=== PATIENT | female | born 1985 | race Caucasian/White ===

== ENCOUNTER 2017-09-11 11:36 | Emergency (ER) | payer MEDICAID ==
[2017-09-11 11:45] VITALS: BP 132/78
--- NOTE | 2017-09-11 11:55 | ER Document Report ---
HPI - HPI Patient complains to provider of: right neck pain Onset: Yesterday Onset/Duration: Gradual Pain Level: 5 Context: 31-year-old female woke up with right neck pain and periscapular pain worse when she moves her head. No radiculopathy. No fever. No injury. She was recently diagnosed with fibromyalgia. Associated Symptoms: None Exacerbated by: Movement Relieved by: Denies - ROS ROS below otherwise negative: Yes Systems Reviewed and Negative: Yes All other systems reviewed and negative - REPRODUCTIVE Reproductive: DENIES: : Past Medical History - General Information source: Patient - Social History Smoking Status: Current Every Day Smoker Frequency of alcohol use: None Drug Abuse: None Lives with: Family Family History: Reviewed & Not Pertinent Musculoskeltal Medical History: Reports Hx Musculoskeletal Deformity, Reports Hx Musculoskeletal Trauma Psychiatric Medical History: Reports: Hx Anxiety, Hx Depression Surgical Hx: Negative - Immunizations Immunizations up to date: Yes Hx Diphtheria, Pertussis, Tetanus Vaccination: Yes Vertical Provider Document - CONSTITUTIONAL Agree With Documented VS: Yes Exam Limitations: No Limitations - INFECTION CONTROL TRAVEL OUTSIDE OF THE [place] IN LAST 30 DAYS: No - HEENT HEENT: Normocephalic Notes: . - NECK Notes: Tense and tender right trapezius muscle and periscapular muscles. Nontender C- spine - RESPIRATORY Respiratory: Breath Sounds Normal, No Respiratory Distress O2 Sat by Pulse Oximetry: 99 - CARDIOVASCULAR Cardiovascular: Regular Rate, Regular Rhythm - MUSCULOSKELETAL/EXTREMETIES Musculoskeletal/Extremeties: Tender - see above - NEURO Level of Consciousness: Awake, Alert, Appropriate Motor/Sensory: No Motor Deficit, No Sensory Deficit - DERM Integumentary: Warm, Dry, No Rash Course - Vital Signs Vital signs: Temp Pulse Resp BP Pulse Ox 98.6 F 94 132/78 H 99 09/11/17 11:43 09/11/17 11:43 09/11/17 11:43 09/11/17 11:43 Discharge - Discharge Clinical Impression: Right torticollis Condition: Good Disposition: HOME, SELF-CARE Instructions: Acetaminophen, Chiropractor, Use of [id number] Ibuprofen ( [facility]), Torticollis ([facility]), Ultram ([facility]) Additional Instructions: warm compress, heating pad massage positioning as discussed see your for follow up over the counter motrin and tylenol consistantly few days Prescriptions: Tramadol HCl [Ultram 50 mg Tablet] 50 mg PO ASDIR PRN #10 tablet PRN Reason: Referrals: ELOISE HORNER DC [CHIROPRACTOR] - Follow up as needed
[2017-09-11] MEDS ORDERED: ACETAMINOPHEN 325 MG TABLET PO ONE (12:21)
[2017-09-11] MEDS ORDERED: IBUPROFEN 600 MG TABLET PO ONE (12:21)
== END 2017-09-11 12:53 | disposition home or self-care (01) ==
LOC: ER 11:36
DX: M43.6 Torticollis (principal); M79.7 Fibromyalgia; F17.200 Nicotine dependence, unspecified, uncomplicated
CPT/HCPCS: 99283; J3490 ×2

== ENCOUNTER 2018-03-08 17:39 | Emergency (ER) | payer OTHER, MEDICAID ==
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
[2018-03-08] MEDS ORDERED: KETOROLAC TROMETHAMINE INJ/PF 30 MG/1 ML SDV IM ONE (18:12)
[2018-03-08] MEDS ORDERED: CYCLOBENZAPRINE HCL 10 MG TABLET PO ONE (18:12)
[2018-03-08 18:39] VITALS: BP 146/88
== END 2018-03-08 18:34 | disposition home or self-care (01) ==
LOC: ER 17:39
DX: M54.2 Cervicalgia (principal); V43.52XA Car driver injured in collision with other type car in traffic accident, initial encounter; F17.200 Nicotine dependence, unspecified, uncomplicated
CPT/HCPCS: 99284; 96372; J1885